=== PATIENT | female | born 1940 | race Caucasian/White ===

== ENCOUNTER → 2016-08-09 | Outpatient (CLI) | payer MEDICARE, OTHER ==
[~2016-08-09] MED LIST: ALPHAGAN 05 ML/1 BOT OPHTH; ASPIRIN EC81 MG PO; CITRACAL+D(315M1 TAB PO; COSOPT DROPS 1010 ML OPHTH; FISH OIL1000 MG PO; HUMIBID LA (MU600 MG PO; MOTRIN800 MG PO; MULTI VITAMIN1 EACH PO; NORCO 7.5-3251 EACH PO; PRAVACHOL20 MG PO; TOPROL XL 5050 MG PO; XALATAN2.5 ML OPHTH; XANAX0.5 MG PO
== END | disposition disaster alternative care site (69) ==
LOC: GRAD 13:53
PROC: 02HV33Z Insertion of Infusion Device into Superior Vena Cava, Percutaneous Approach (ICD-10-PCS; principal; 2016-08-09)
PROC: B518YZA Fluoroscopy of Superior Vena Cava using Other Contrast, Guidance (ICD-10-PCS; 2016-08-09)
DX: C78.01 Secondary malignant neoplasm of right lung (principal); C18.7 Malignant neoplasm of sigmoid colon; I15.9 Secondary hypertension, unspecified; D69.59 Other secondary thrombocytopenia